=== PATIENT | female | born 1990 | race Caucasian/White ===

== ENCOUNTER 2017-06-18 10:13 | Emergency (ER) | payer OTHER ==
[~2017-06-18] VITALS: Ht 172.7 cm; Wt 58.0 kg
[2017-06-18 11:25] LABS: HEMATOCRIT 36.2 % (36.0-46.0); HEMOGLOBIN 12.8 G/DL (11.9-15.5); MCH 31.8 PG (29.0-34.0); MCHC 35.4 G/DL (30.0-36.0); PLATELET COUNT 207 K/uL (156-360); RBC DIS.WIDTH-CV 12.1 % (11.8-14.6); RBC DIS.WIDTH-SD 40.2 % (39-53); RED BLOOD COUNT 4.02 M/uL (3.80-5.20); WHITE BLOOD COUNT 8.2 K/uL (4.1-10.2)
[2017-06-18 11:50] LABS: CHLORIDE 111 MEQ/L (99-109); CREATININE 0.8 MG/DL (0.6-1.3); GFR ESTIMATE (CALCULATED) > 59 mL/min/; GLUCOSE 99 mg/dL (70-99); POTASSIUM 3.9 MEQ/L (3.7-5.4); SODIUM 138 MEQ/L (136-147); UREA NITROGEN (BUN) 26 mg/dL (9-23)
[2017-06-18 11:53] LABS: QUANTITATIVE HCG < 4.0 MIU/ML; TROP-I INTERPRETATION NEGATIVE; TROPONIN-I < 0.01 ng/mL (0.0-0.30)
[2017-06-18] MEDS ORDERED: FLAGYL500 MG PO (12:09)
[2017-06-18] MEDS ORDERED: BACTRIM,SEPT1 TABLET PO (12:09)
[2017-06-18 12:22] VITALS: BP 107/67
== END 2017-06-18 12:24 | disposition home or self-care (01) ==
LOC: EME 10:13
PROC: 3E0234Z Introduction of Serum, Toxoid and Vaccine into Muscle, Percutaneous Approach (ICD-10-PCS; principal; 2017-06-18)
DX: R07.89 Other chest pain (principal); S60.411A Abrasion of left index finger, initial encounter; S60.511A Abrasion of right hand, initial encounter; R53.83 Other fatigue; W54.0XXA Bitten by dog, initial encounter; Z23 Encounter for immunization; F17.200 Nicotine dependence, unspecified, uncomplicated; R56.9 Unspecified convulsions; Z88.0 Allergy status to penicillin
CPT/HCPCS: 71046; 80048; 84439; 84443; 84484; 84702; 85027; 86618; 93005; 99281; 99284